=== PATIENT | male | born 1950 | race Caucasian/White ===

== ENCOUNTER → 2017-05-19 | Outpatient (CLI) | payer MEDICARE, MEDICAID ==
[2017-05-19] VITALS (18 sets, daily range): BP systolic 150–194; BP diastolic 8–96
[~2017-05-19] MED LIST: ALDACTONE 25MG25 MG PO; AMARYL 4MG. TAB4 MG PO; ASPIRIN EC81 M1 PO; ASPIRIN OR; BACTROBAN2% TP; BLEPH-10 OPT5 ML/BOT OP; CARAFATE1 GM PO; COREG6.25 MG PO; CRESTOR5 MG PO; FERROUS SULFAT325 M2 PO; FERROUS SULFATE 325 MG PO; GINSENG; JANUVIA100 MG PO; LAC-HYDRIN121 TP; LASIX80 MG PO; LISINOPRIL 10MG10 MG PO; LISINOPRIL10 MG PO; LOPROX0.771 TP; LOVAZA1 GM PO; METFORMIN 500M500 M1 PO; METFORMIN HCL1000 MG PO; MICRO-K 10 MEQ10 MEQ PO; OMEPRAZOLE20 MG PO; PLAVIX 75MG TAB75 MG PO; PLAVIX75 MG PO; TRADJENTA5 MG PO; TRAMADOL 50MG T50 MG PO; TRENTAL 400MG400 MG PO; TRICOR 145 MG145 MG PO; TYLENOL PM1 CAP PO; XYZAL5 MG PO
[2017-05-19 11:48] LABS: LYMPH # 1.2 K/mm3 (0.7-4.5); LYMPH % 20.2 % (10-50)
[2017-05-19 11:50] LABS: HEMOGLOBIN 7.7 g/dL (14.1-18.0)
[2017-05-19 12:34] LABS: ABO BLOOD TYPE O; RH BLOOD TYPE POSITIVE
[2017-05-19 12:50] LABS: ANTIHUMAN GLOB CROSSMATCH COMPAT
[2017-05-19 19:17] LABS: HEMOGLOBIN 9.1 g/dL (14.1-18.0)
== END ==
LOC: LAB 11:33 → COP 12:53
PROVIDERS: Family Medicine
DX: D50.0 Iron deficiency anemia secondary to blood loss (chronic) (principal)
CPT/HCPCS: P9016

== ENCOUNTER 2017-06-12 08:37 | Emergency (ER) | payer MEDICARE, MEDICAID ==
[~2017-06-12] VITALS: Ht 175.3 cm; Wt 136.1 kg
--- NOTE | 2017-06-12 09:02 | Emergency Room Report ---
History of Present Illness Time Seen by MD Kay Presenting Problem in Triage Pt arrived:Wheelchair Presenting Problem:BLEEDING NOTED TO R GREAT TOE, PT STATES UNKNOWN INJURY, THINKS POSSIBLY HIT IT WHILE GETTING ON TRANSPORTATION BUS THIS MORNING. BLEEDING IS NOTED UNDER PT TOENAIL ON R GREAT TOE. PT REPORTS DOES NOT NORMALLY HAVE SENSATION IN FEET Onset of symptoms date/time:06/12/17/ or onset unknown for:MEDICAL HX UNKNOWN Treatment Prior to Arrival: [employer] Provided by: Sepsis Risk Assessment: Temp: 98.1 B/P: 154/70 MAP: 98 Pulse: 89 Resp: 20 Recent fever? N Clinical Suspician of Infection? N Mental Status: 1 - Regular (Normal Baseline) Sepsis Risk:Low Sepsis Risk Have you (or family members/close friends) recently traveled outside the [place]? N If Yes, where/when: Have you had exposure to infectious disease within the past month? N TB? Other? Specify: Stubbed LEFT great toe on door today on way to bus; noted some bleeding to foot when getting on bus; is on Plavix; hx diabetic peripheral neuropathy as well as onychomycosis. Presents with slow oozing from medial aspect of left great toenail, with slightly unroofed nail. ALLERGIES Coded Allergies: Penicillins (Intermediate, 05/19/17) erythromycin base (Intermediate, 05/19/17) Home Medications Active Scripts Sucralfate (Carafate) 1 GM PO ACHS #120 TAB Ref 3 Prov: 04/16/13 Metformin HCl (Metformin) 500 MG PO BIDD #60 TAB Prov: 04/07/14 MUPIROCIN 2% (Bactroban Oint) 2 GM TP BID #60 EACH Ref 1 Prov: 04/07/14 Reported Medications Rosuvastatin Calcium (Crestor) 5 MG PO DAILY Omeprazole (Omeprazole 20MG) 20 MG PO DAILY Ferrous Sulfate (Ferrous Sulfate 325MG) 325 MG PO BID CLOPIDOGREL BISULFATE (PLAVIX) 75 MG PO DAILY LEVOCETIRIZINE DIHYDROCHLORIDE (Xyzal) 5 MG PO DAILY Tramadol Hcl (Tramadol 50MG) 50 MG PO NEEDED Linagliptin (Tradjenta) 5 MG PO DAILY Fenofibrate 145 MG PO DAILY Ammonium Lactate (Lac-Hydrin) 1 EMMANUEL TP BIDP Carvedilol (Coreg) 6.25 MG PO BID Glimepiride (Amaryl 4MG) 4 MG PO DAILY Spironolactone (Aldactone) 25 MG PO BID #60 TAB POTASSIUM CHL (Potassium Chloride) 10 MEQ PO DAILY OMEGA-3 ACID ETHYL ESTERS (Lovaza) 1 GM PO QID Furosemide (Lasix) 80 MG PO DAILY Lisinopril 10 MG PO BID History Medical History General CAD? No Angina: No OR: No Hypertension? Yes Hyperlipidemia? Yes CHF? No DVT? No PE? No COPD? No Asthma? No Anemia? No GERD? No Gastric ulcers? No GI Bleed? No Hernia? No Thyroid Problems? No Hypothyroidism? No CVA? Yes Seizures? No Diabetes? Yes Insulin Dependent: No Insulin Pump: No Home FSBS? Yes Renal Insuffiency? No End Stage Renal Disease? No UTI? No Stones? No GB Disease: No Nephritic Syndrome? No Asplenia? No Hepatitis? No Sickle Cell Disease? No Cataracts? No Glaucoma? No MRSA? No TB? No Cancer? No Immunization Hx DT/Tetanus > 10 Years Ago Flu Refused Pneumonia Refuses Surgical Hx Previous Surgery?Y CIRCUMCISION ORAL SURGERY Family History Family Hx Diabetes Yes CAD Yes Hypertension Yes Hyperlipidemia Yes Cancer No TB No Social History Smoking Hx Smoker: Former Smoker Tobacco: No Packs/day < 1 Pack Alcohol Alcohol: Yes Review of Systems All Other Systems Reviewed and Negative Skin see HPI Psychiatric/Neurological pre-existing deficit Physical Exam Vital Signs Vital Signs Date Time Temp Pulse Resp B/P Pulse O2 O2 Flow FiO2 Ox Delivery Rate 06/12 0844 98.1 89 20 154/70 93 General Appearance normal appearance, WD/WN, no apparent distress Eye Exam - bilateral eye normal exam, bilateral eye PERRL, bilateral eye EOMI Respiratory Status Yes: trachea midline. No: respiratory distress. Cardiovascular normal exam, no peripheral edema, normal peripheral pulses Extremities diabetic peripheral neuropathy, feet dark red with global onychomycosis; oozing is very slow but steady from medial great toenail with mildly unroofed mycotic/thickened nail noted; has brisk CR; evidence of chronic PVD and global nonpitting edema, inability to feel feet. FROM all toes. Strength 5 Upper Ext (L), 5 Upper Ext (R), 5 Lower Ext (L), 5 Lower Ext (R) Neurologic alert (peripheral neuropathy baseline) Glascow Coma Scale Glascow Coma Scale Response Value EYE response: 4 Spontaneously 4 MOTOR response: 6 OBEYS 6 VERBAL response: 5 Oriented & Converses 5 Total 15 Skin intact (see above) Medical Decision Making LABS/Meds/Orders Pt receiving controlled substance in ED? No Results/Orders Current Medication Orders Sig/Yinka Start time Last Medication Dose Route Stop Time Status Admin Diphtheria/Pertussis/ 0 .STK-MED ONE 06/12 905 DC Tetanus Vacc IM Silver Nitrate/ 0 .STK-MED ONE 06/12 905 DC Potassium Nitrate EX Diphtheria/Pertussis/ 0.5 ML ONCE ONE 06/12 900 DC 06/12 Tetanus Vacc IM 06/12 901 0910 Silver Nitrate/ 1 EACH ONCE ONE 06/12 900 DC 06/12 Potassium Nitrate EX 06/12 901 09 Silver Nitrate/ 0 .STK-MED ONE 06/12 0847 DC Potassium Nitrate EX Orders Procedure Date/time Status TOE-LT-1ST DIGIT(GREAT)-3VIEWS 06/12 0858 Active XRAY/CT/US XRAY/CT/US XRAY foot XR interpretation by reviewed by me, discussed w/radiologist Xray Results no fracture seen (DJD neg acute per Dr. Dobbins) Progress ED Progress Notes Date 06/12/17 Time 1018 Comment No further bleeding on recheck. Procedures Laceration/Wound Repair Laceration/Wound Repair Risks/benefits discussed with pt/guardian? Yes Tetanus status not up to date (updated today) Wound Location toe(s) Wound Length (cm) 0.25 Wound's Depth, Shape superficial Wound Explored clean Wound Prep Hibiclens Wound Debrided none Wound Repaired With silver nitrate cautery Sterile Dressing Applied Yes Splint Applied No Departure Departure Time of Disposition 1019 Disposition DC Home or Self Care(routine) Clinical Impression Primary Impression: Abrasion, left great toe, initial encounter Condition STABLE Referrals JYOTHI MOORE DPM Patient Instructions DI for Abrasion Additional Instructions See Dr. Moore, next available appointment; soak foot ten minutes every few hours while awake in warm water; keep quite dry, apply antibiotic ointment and dressing. Watch for infection. See Dr. Gaming in one to two days for recheck. Discharge Counseling Counseled pt/family regarding diagnosis, test results, medications/RX, home care, follow up needs ED Critical Care Critical Care No at 1025
--- OUTSIDE RECORDS SUMMARY | 2017-06-12 09:10 | External Medical Summary Rpt | CCD ---
Author Author , TAMRA BOSCHBRIGID Address Unknown Phone [email or web address] Care Team Providers Care Medicaid Biller Name Role Phone Jacy DILLON, Unavailable Unavailable Jacy Gaming MD, Unavailable Unavailable Eusebio Gaming MD Purpose Continuity of Care Document - 01-26-2013 through 2016 Problems Code Diagnosis DOS Provider Status 250.00 280.9 Iron [place] deficiency [facility] anemia [facility] 285.9 Anemia [facility] 401.1 Benign [facility] n [id number] Diabetes [place] mellitus [facility] type 2 Hospital 443.9 Peripheral [place] vascular [facility] disease [facility] [id number] Active [facility] 780.57 Sleep apnea [facility] [id number] Chronic [facility] D50.0 IRON DEFICIENCY ANEMIA SECONDARY TO BLOOD LOSS (CHRONIC) D64.9 ANEMIA, UNSPECIFIED V76.44 Allergies, Adverse Reactions, Alerts Type Allergy to substance Drug Allergy Adverse Reaction to Substance Substance Reaction Severity MYCINS Unknown Severe Macrolide Unknown Severe (Erythromycin-Related ) PCN (penicillin) S-DIFF. BREATHING Unknown Propoxyphene Unknown Unknown Acetaminophen Unknown Unknown Clinical Alert Notifications Alert Diabetes: no A1C in the last 6 months Diabetes: no eye exam in the last 365 days Diabetes: no influenza vaccine in the last 365 days Diabetes: no lipid panel in the last 365 days Diabetes: no urine protein screening in the last 365 days Medications Na ND Rx Da Fi Fi Am Da Di Ph RX Ph St me C No te ll ll ou ys ag ar # ys at rm s nt no ma ic us Or Da si cy ia de te s n re d FE 00 09 1 No RR 60 -2 OU 30 0- Lo S 17 20 ng FERNANDES 92 13 er LF 9 AT Ac E ti 32 ve 5 MG TA BL ET GL 51 09 2 No IM 07 -1 EP 90 9- Lo IR 42 20 ng ID 52 13 er E 0 2 Ac MG ti ve TA BL ET Li 00 09 2 No si 17 -1 no 23 9- Lo pr 75 20 ng il 91 13 er 0 10 Ac MG ti ve Ta bl et Po 00 09 2 No ta 24 -1 ss 50 9- Lo iu 04 20 ng m 10 13 er Ch 1 lo Ac ri ti de ve 10 ME Q TA BL E SP 51 09 2 No IR 07 -1 ON 90 9- Lo OL 10 20 ng AC 32 13 er TO 0 NE Ac ti 25 ve MG TA BL ET PA 51 09 2 No NT 07 -1 OP 90 9- Lo RA 05 20 ng ZO 12 13 er LE 0 Ac SO ti D ve DR 40 MG TA B [place] 51 09 2 No cr 07 -1 al 90 9- Lo fa 87 20 ng te 12 13 er 0 1G Ac M ti Ta ve bl et DE 00 09 0 No XT 40 -1 RO 97 8- Lo SE 94 20 ng 10 13 er 5% 9 -0 Ac .9 ti % ve NA CL IV SO LN FU 51 09 3 No RO 07 -1 SE 90 8- Lo NV 52 20 ng DE 72 13 er 0 80 Ac ti MG ve TA BL ET TR 65 09 3 No AM 16 -1 AD 20 8- Lo OL 62 20 ng 71 13 er HC 0 L Ac 50 ti ve MG TA BL ET CA 51 09 3 No RV 07 -1 ED 90 8- Lo IL 93 20 ng OL 02 13 er 0 6. Ac 25 ti ve MG TA BL ET SP 51 09 1 No IR 07 -1 ON 90 8- Lo OL 10 20 ng AC 32 13 er TO 0 NE Ac ti 25 ve MG TA BL ET Vital Signs 04-16-2013 15:00 Name Value Interpretat Reference Comment ion Range Body 97.9 [degF] Temperature BP 78 mm[Hg] Diastolic BP Systolic 157 mm[Hg] Heart 78 /min Rate/Pulse Respiratory 20 /min Rate 04-16-2013 08:00 Name Value Interpretat Reference Comment ion Range O2% 94 % 04-14-2013 16:00 Name Value Interpretat Reference Comment ion Range O2% 98 % 04-13-2013 16:54 Name Value Interpretat Reference Comment ion Range Body 98.6 [degF] Temperature BP 58 mm[Hg] Diastolic BP Systolic 131 mm[Hg] Heart 98 /min Rate/Pulse Height 175.26 cm Respiratory 20 /min Rate Weight 308 [lb_av] Measured Weight 139.765 kg Measured 01-26-2013 03:20 Name Value Interpretat Reference Comment ion Range BP 66 mm[Hg] Diastolic BP Systolic 144 mm[Hg] Heart 89 /min Rate/Pulse O2% 99 % Respiratory 20 /min Rate 01-26-2013 02:55 Name Value Interpretat Reference Comment ion Range BP 74 mm[Hg] Diastolic BP Systolic 152 mm[Hg] Heart 87 /min Rate/Pulse O2% 97 % Respiratory 20 /min Rate Results Labs Lab Lab Date Result Refere Interp Status Commen Order Detail nces retati t Range on Whole blood hemoglobin and hematocrit pa (05-19-2017 16:35) Blood = 9.1 14.1-18 complet hemoglo 017 g/dL .0 ed bin 16:35 measure ment (mass/v olum Blood = 28.6 42.0-52 complet hematoc 017 % .0 ed rit 16:35 (volume fractio n) Leukocyte reduction of packed red blood (05-19-2017 15:50) Leukocy BLOOD complet te 017 UNIT ed reducti 15:50 RELEASE on of BLOOD packed UNIT red RELEASE blood L Comment: BLOOD UNIT # : [id number] RELEASED 05/19/17 Comment: Maged Melchor Comment: Comment: O POSITIVE Blood product special preparation [Type] (05-19-2017 15:50) Blood BLOOD complet product 017 UNIT ed 15:50 RELEASE special prepara tion [Type] Leukocyte reduction of packed red blood (05-19-2017 13:55) Leukocy BLOOD complet te 017 UNIT ed reducti 13:55 RELEASE on of BLOOD packed UNIT red RELEASE blood L Comment: BLOOD UNIT # : [id number] RELEASED 05/19/17 Comment: Elaina Joseph Comment: Comment: O POSITIVE Blood product special preparation [Type] (05-19-2017 13:55) Blood BLOOD complet product 017 UNIT ed 13:55 RELEASE special prepara tion [Type] Crossmatch (05-19-2017 11:36) Immedia COMPAT complet te spin 017 COMPAT ed 11:36 L crossma tch Interpr COMPAT complet etation 017 COMPAT ed of 11:36 L major crossma tch resul Blood type and crossmatch (05-19-2017 11:36) Blood O O L complet ABO 017 ed group 11:36 typing Rh POSITIV complet blood 017 E ed group 11:36 POSITIV typing E L Materna NEGATIV NEGATIV complet l 017 E E ed antibod 11:36 NEGATIV y E L screen Blood type & Crossmatch panel in Blood (05-19-2017 11:36) Blood NEGATIV NEGATIV complet group 017 E E ed antibod 11:36 y screen [Presen ce] in Serum or Plasma Rh POSITIV complet [Type] 017 E ed in 11:36 Blood ABO O complet group 017 ed [Type] 11:36 in Blood Blood type & Crossmatch panel in Blood (05-19-2017 11:36) Major COMPAT complet crossma 017 ed tch 11:36 [interp retatio n] Major COMPAT complet crossma 017 ed tch 11:36 [interp retatio n] by Immedia te spin CBC w auto diff (05-19-2017 11:33) Automat = 0.0 0-0.2 complet ed 017 K/MM3 ed blood 11:33 basophi l count (count/ vo Blood = 5.8 4.8-10. complet leukocy 017 K/MM3 8 ed bertha 11:33 count (number /volume ) Automat = 16.5 11.5-17 complet ed 017 % .5 ed erythro 11:33 cyte distrib ution width Red = 2.66 4.6-6.2 complet blood 017 M/mm3 ed cell 11:33 count Blood = 230 142-424 complet platele 017 K/mm3 ed t count 11:33 Automat = 9.0 7.4-10. complet ed 017 fl 4 ed blood 11:33 platele t mean volume [place] % = 5.7 % 1.7-9.3 complet 017 ed 11:33 Absolut = 0.3 0.1-1.0 complet e 017 K/mm3 ed monocyt 11:33 e count Automat = 93.9 82.2-97 complet ed 017 fl .8 ed erythro 11:33 cyte mean corpusc ular v Automat = 30.8 31.8-35 complet ed 017 g/dl .4 ed erythro 11:33 cyte mean corpusc ular h Mean = 29.0 27-31.2 complet corpusc 017 pg ed ular 11:33 hemoglo bin (MCH) determ Lymphoc = 20.2 10-50 complet yte 017 % ed count, 11:33 blood, automat ed Absolut = 1.2 0.7-4.5 complet e 017 K/mm3 ed lymphoc 11:33 yte count Blood = 7.7 14.1-18 complet hemoglo 017 g/dL .0 ed bin 11:33 measure ment (mass/v olum Comment: CRITICAL RESULTS Comment: RESULTS CALLED TO: MONSECHARO Thompson 05/19/17 1150 Maged Melchor Comment: Jackeline Blood = 25.0 42.0-52 complet hematoc 017 % .0 ed rit 11:33 (volume fractio n) Granulo = 68.2 37.0-80 complet cyte 017 % .0 ed percent 11:33 age Blood = 4.0 1.3-8.0 complet granulo 017 K/mm3 ed cytes 11:33 automat ed count (numb Automat = 5.1 % 0.1-12. complet ed 017 0 ed blood 11:33 eosinop hils/10 0 leukocy t Automat = 0.3 0.0-0.4 complet ed 017 K/mm3 ed blood 11:33 eosinop hil count Baso % = 0.8 % 0.1-2.0 complet 017 ed 11:33 Blood type & Crossmatch panel in Blood (03-19-2017 16:26) Blood NEGATIV NEGATIV complet group 017 E E ed antibod 16:26 y screen [Presen ce] in Serum or Plasma Rh POSITIV complet [Type] 017 E ed in 16:26 Blood ABO O complet group 017 ed [Type] 16:26 in Blood Blood type & Crossmatch panel in Blood (03-19-2017 16:26) Major COMPAT complet crossma 017 ed tch 16:26 [interp retatio n] Major COMPAT complet crossma 017 ed tch 16:26 [interp retatio n] by Immedia te spin CBC with AUTO DIFF (04-16-2013 06:45) WBC # 09-21-2 6.5 4.8-10. complet Bld 013 K/MM3 8 ed Auto 06:45 RBC # 09-21-2 4.00 4.6-6.2 complet Bld 013 M/mm3 ed Auto 06:45 Hgb -21-2 9.2 14.1-18 complet Bld-mCn 013 g/dL .0 ed c 06:45 Hct Fr --2 30.6 % 42.0-52 complet Bld 013 .0 ed 06:45 MCV RBC -21-2 76.6 fl 82.2-97 complet 013 .8 ed 06:45 MCH RBC -21-2 23.0 pg 27-31.2 complet Qn 013 ed Auto 06:45 MEAN -21-2 30.0 31.8-35 complet CORPUSC 013 g/dl .4 ed ULAR 06:45 HGB CONC RDW RBC -21-2 21.6 % 11.5-17 complet Auto 013 .5 ed 06:45 Platele 09-21-2 294 142-424 complet t Bld 013 K/mm3 ed Ql 06:45 Manual MEAN 09-21-2 7.1 fl 7.4-10. complet PLATELE 013 4 ed T 06:45 VOLUME Granulo -21-2 69.0 % 37.0-80 complet cytes 013 .0 ed Fr Bld 06:45 Auto LYMPH % 09-21-2 21.8 % 10-50 complet 013 ed 06:45 Monocyt 09-21-2 5.2 % 1.7-9.3 complet es Fr 013 ed Bld 06:45 Auto Eosinop 09-21-2 3.5 % 0.1-12. complet hil Fr 013 0 ed Bld 06:45 Auto Basophi 09-21-2 0.5 % 0.1-2.0 complet ls Fr 013 ed Bld 06:45 Auto Granulo 09-21-2 4.5 1.3-8.0 complet cytes # 013 K/mm3 ed Bld 06:45 Auto Lymphoc 09-21-2 1.4 0.7-4.5 complet ytes Fr 013 K/mm3 ed Bld 06:45 Auto Monocyt 09-21-2 0.3 0.1-1.0 complet es # 013 K/mm3 ed Bld 06:45 Auto Eosinop 09-21-2 0.2 0.0-0.4 complet hil # 013 K/mm3 ed Bld 06:45 Auto Basophi 09-21-2 0.0 0-0.2 complet ls # 013 K/MM3 ed Bld 06:45 Auto BASIC METABOLIC PANEL (04-15-2013 08:30) Glucose 201 74-106 complet 013 mg/dL ed Bld-mCn 08:30 c BUN 26 7-18 complet Bld-mCn 013 mg/dL ed c 08:30 Creat 04-15-2 1.9 0.8-1.3 complet SerPl-m 013 mg/dL ed Cnc 08:30 ESTIMAT 04-15- 78 50-200 complet ED 013 ML/MIN ed CREATIN 08:30 INE CLEARAN CE GFR 36 Greater complet (ESTIMA 013 ML/MIN than ed SOHAIL) 08:30 60 Sodium 04-15- 140 136-145 complet SerPl-s 013 mmoL/L ed Cnc 08:30 Potassi 04-15- 4.5 3.5-5.1 complet um 013 mmoL/L ed SerPl-s 08:30 Cnc Chlorid 04-15- 102 98-107 complet e 013 mmoL/L ed SerPl-s 08:30 Cnc CO2 04-15- 30 21.0-32 complet SerPl-s 013 mmoL/L .0 ed Cnc 08:30 Calcium 09-20-2 8.3 8.5-10. complet 013 mg/dL 1 ed SerPl-m 08:30 Cnc CBC with AUTO DIFF (04-15-2013 08:30) WBC # 09-20-2 7.0 4.8-10. complet Bld 013 K/MM3 8 ed Auto 08:30 RBC # 09-20-2 3.95 4.6-6.2 complet Bld 013 M/mm3 ed Auto 08:30 Hgb 09-20-2 8.5 14.1-18 complet Bld-mCn 013 g/dL .0 ed c 08:30 Hct Fr -20-2 29.7 % 42.0-52 complet Bld 013 .0 ed 08:30 MCV RBC 09-20-2 75.1 fl 82.2-97 complet 013 .8 ed 08:30 MCH RBC -20-2 21.5 pg 27-31.2 complet Qn 013 ed Auto 08:30 MEAN 09-20-2 28.6 31.8-35 complet CORPUSC 013 g/dl .4 ed ULAR 08:30 HGB CONC RDW RBC -20-2 22.3 % 11.5-17 complet Auto 013 .5 ed 08:30 Platele 09-20-2 351 142-424 complet t Bld 013 K/mm3 ed Ql 08:30 Manual MEAN -20-2 8.0 fl 7.4-10. complet PLATELE 013 4 ed T 08:30 VOLUME Granulo -20-2 76.0 % 37.0-80 complet cytes 013 .0 ed Fr Bld 08:30 Auto LYMPH % 09-20-2 16.3 % 10-50 complet 013 ed 08:30 Monocyt 09-20-2 4.2 % 1.7-9.3 complet es Fr 013 ed Bld 08:30 Auto Eosinop 09-20-2 2.9 % 0.1-12. complet hil Fr 013 0 ed Bld 08:30 Auto Basophi 09-20-2 0.6 % 0.1-2.0 complet ls Fr 013 ed Bld 08:30 Auto Granulo 09-20-2 5.3 1.3-8.0 complet cytes # 013 K/mm3 ed Bld 08:30 Auto Lymphoc 09-20-2 1.1 0.7-4.5 complet ytes Fr 013 K/mm3 ed Bld 08:30 Auto Monocyt 09-20-2 0.3 0.1-1.0 complet es # 013 K/mm3 ed Bld 08:30 Auto Eosinop 09-20-2 0.2 0.0-0.4 complet hil # 013 K/mm3 ed Bld 08:30 Auto Basophi 09-20-2 0.0 0-0.2 complet ls # 013 K/MM3 ed Bld 08:30 Auto CBC with AUTO DIFF (04-14-2013 05:30) WBC # 09-19-2 6.6 4.8-10. complet Bld 013 K/MM3 8 ed Auto 05:30 RBC # 09-19-2 3.40 4.6-6.2 complet Bld 013 M/mm3 ed Auto 05:30 Hgb 09-19-2 7.0 14.1-18 Low complet Bld-mCn 013 g/dL .0 alert ed c 05:30 Hct Fr 09-19-2 24.7 % 42.0-52 complet Bld 013 .0 ed 05:30 MCV RBC 09-19-2 72.7 fl 82.2-97 complet 013 .8 ed 05:30 MCH RBC 09-19-2 20.6 pg 27-31.2 complet Qn 013 ed Auto 05:30 MEAN 09-19-2 28.3 31.8-35 complet CORPUSC 013 g/dl .4 ed ULAR 05:30 HGB CONC RDW RBC 09-19-2 21.5 % 11.5-17 complet Auto 013 .5 ed 05:30 Platele 09-19-2 331 142-424 complet t Bld 013 K/mm3 ed Ql 05:30 Manual MEAN 09-19-2 6.9 fl 7.4-10. complet PLATELE 013 4 ed T 05:30 VOLUME Granulo 09-19-2 71.3 % 37.0-80 complet cytes 013 .0 ed Fr Bld 05:30 Auto LYMPH % 09-19-2 18.4 % 10-50 complet 013 ed 05:30 Monocyt 09-19-2 7.0 % 1.7-9.3 complet es Fr 013 ed Bld 05:30 Auto Eosinop 09-19-2 3.0 % 0.1-12. complet hil Fr 013 0 ed Bld 05:30 Auto Basophi 09-19-2 0.3 % 0.1-2.0 complet ls Fr 013 ed Bld 05:30 Auto Granulo -19-2 4.7 1.3-8.0 complet cytes # 013 K/mm3 ed Bld 05:30 Auto Lymphoc -19-2 1.2 0.7-4.5 complet ytes Fr 013 K/mm3 ed Bld 05:30 Auto Monocyt -19-2 0.5 0.1-1.0 complet es # 013 K/mm3 ed Bld 05:30 Auto Eosinop -19-2 0.2 0.0-0.4 complet hil # 013 K/mm3 ed Bld 05:30 Auto Basophi -19-2 0.0 0-0.2 complet ls # 013 K/MM3 ed Bld 05:30 Auto H. PYLORI IGG ANTIBODY (04-14-2013 05:30) H. 04-14-2 POSITIV complet PYLORI 013 E ed IGG 05:30 ANTIBOD Y Vit B12 Ser-mCnc (04-13-2013 17:45) Vit B12 319 200-110 complet 013 pg/mL 0 ed Ser-mCn 17:45 c Folate SerPl-mCnc (04-13-2013 17:45) Folate 04-13- 9.1 () complet SerPl-m 013 ng/mL ed Cnc 17:45 Ferritin SerPl-mCnc (04-13-2013 17:45) Ferriti 04-13- 6 ng/mL 8-388 complet n 013 ed SerPl-m 17:45 Cnc COMPREHENSIVE METABOLIC PANEL (04-13-2013 17:45) Glucose 137 74-106 complet 013 mg/dL ed Bld-mCn 17:45 c BUN 04-13- 34 7-18 complet Bld-mCn 013 mg/dL ed c 17:45 Creat 04-13- 2.2 0.8-1.3 complet SerPl-m 013 mg/dL ed Cnc 17:45 ESTIMAT 04-13- 67 50-200 complet ED 013 ML/MIN ed CREATIN 17:45 INE CLEARAN CE GFR 30 Greater complet (ESTIMA 013 ML/MIN than ed SOHAIL) 17:45 60 Sodium 04-13- 140 136-145 complet SerPl-s 013 mmoL/L ed Cnc 17:45 Potassi 04-13- 4.7 3.5-5.1 complet um 013 mmoL/L ed SerPl-s 17:45 Cnc Chlorid 102 98-107 complet e 013 mmoL/L ed SerPl-s 17:45 Cnc CO2 30 21.0-32 complet SerPl-s 013 mmoL/L .0 ed Cnc 17:45 Calcium 04-13- 8.2 8.5-10. complet 013 mg/dL 1 ed SerPl-m 17:45 Cnc Prot 6.5 6.4-8.2 complet SerPl-m 013 gm/dL ed Cnc 17:45 Albumin 3.2 3.4-5.0 complet 013 gm/dL ed SerPl-m 17:45 Cnc Globuli 3.3 1.3-3.2 complet n 013 gm/dL ed Ser-mCn 17:45 c Albumin 1.0 UNK 1.1-1.8 complet /Glob 013 ed SerPl-m 17:45 Rto Bilirub 0.3 0.2-1.0 complet 013 mg/dL ed SerPl-m 17:45 Cnc AST 13 U/L 15-37 complet SerPl-c 013 ed Cnc 17:45 ALT 24 U/L 30-65 complet SerPl-c 013 ed Cnc 17:45 ALP 73 U/L 50-136 complet SerPl-c 013 ed Cnc 17:45 PROTIME/INR (04-13-2013 17:45) PROTHRO 12.3 9.9-11. complet MBIN 013 SECONDS 6 ed TIME 17:45 INR Bld 1.15 0.9-1.1 complet 013 UNK ed 17:45 ACT PARTIAL THROMBO TIME (04-13-2013 17:45) ACT 22.9 25.3-32 complet PARTIAL 013 SECONDS .0 ed 17:45 THROMBO TIME CBC with AUTO DIFF (04-13-2013 17:45) WBC # 04-13-2 6.1 4.8-10. complet Bld 013 K/MM3 8 ed Auto 17:45 RBC # 09-18-2 2.75 4.6-6.2 complet Bld 013 M/mm3 ed Auto 17:45 Hgb 09-18-2 4.7 14.1-18 Low complet Bld-mCn 013 g/dL .0 alert ed c 17:45 Hct Fr 09-18-2 18.8 % 42.0-52 Low complet Bld 013 .0 alert ed 17:45 MCV RBC 09-18-2 68.2 fl 82.2-97 complet 013 .8 ed 17:45 MCH RBC 09-18-2 17.2 pg 27-31.2 complet Qn 013 ed Auto 17:45 MEAN 09-18-2 25.3 31.8-35 complet CORPUSC 013 g/dl .4 ed ULAR 17:45 HGB CONC RDW RBC 09-18-2 19.0 % 11.5-17 complet Auto 013 .5 ed 17:45 Platele 09-18-2 295 142-424 complet t Bld 013 K/mm3 ed Ql 17:45 Manual MEAN 09-18-2 9.5 fl 7.4-10. complet PLATELE 013 4 ed T 17:45 VOLUME Granulo 09-18-2 70.5 % 37.0-80 complet cytes 013 .0 ed Fr Bld 17:45 Auto LYMPH % 09-18-2 21.0 % 10-50 complet 013 ed 17:45 Monocyt 09-18-2 4.4 % 1.7-9.3 complet es Fr 013 ed Bld 17:45 Auto Eosinop 09-18-2 3.1 % 0.1-12. complet hil Fr 013 0 ed Bld 17:45 Auto Basophi 09-18-2 1.0 % 0.1-2.0 complet ls Fr 013 ed Bld 17:45 Auto Granulo 09-18-2 4.3 1.3-8.0 complet cytes # 013 K/mm3 ed Bld 17:45 Auto Lymphoc 09-18-2 1.3 0.7-4.5 complet ytes Fr 013 K/mm3 ed Bld 17:45 Auto Monocyt 09-18-2 0.3 0.1-1.0 complet es # 013 K/mm3 ed Bld 17:45 Auto Eosinop 09-18-2 0.2 0.0-0.4 complet hil # 013 K/mm3 ed Bld 17:45 Auto Basophi 0.1 0-0.2 complet ls # 013 K/MM3 ed Bld 17:45 Auto Retics/100 RBC Fr Auto (04-13-2013 17:45) Retics/ 1.6 % 0.9-3.2 complet 100 RBC 013 ed Fr 17:45 Auto Procedures Procedure DOS Code Location Performer Comment PACKED 99.04 Eusebio PRATHER MD ON Encounters Encounter Start End Date Code Location Performer Type Date Inpatient MARLIN Gaming MD (IN) 3 16:29 3 15:00 [facility] ABEL Major MD (ER) 3 02:44 3 03:21 [facility]
--- OUTSIDE RECORDS SUMMARY | 2017-06-12 09:10 | External Medical Summary Rpt | CCD ---
Author Author , TAMRA BOSCHBRIGID Address Unknown Phone [email or web address] [email or web address] Care Medical Laboratory Technician Name Role Phone Jacy DILLON, Unavailable Unavailable Jacy Gaming MD, Unavailable Unavailable Eusebio Gaming MD Purpose Continuity of Care Document - 01-26-2013 through 2016 Problems Code Diagnosis DOS Provider Status 250.00 280.9 Iron [place] deficiency [facility] anemia [facility] 285.9 Anemia [facility] 401.1 Benign [facility] n [id number] Diabetes [place] mellitus [facility] type 2 Hospital 443.9 Peripheral [place] vascular [facility] disease [facility] [id number] Active [facility] 780.57 Sleep apnea [facility] [id number] Chronic [facility] D50.0 IRON DEFICIENCY ANEMIA SECONDARY TO BLOOD [...] RO 07 -1 SE 90 8- Lo [place] 52 20 ng DE 72 13 er [...] Comment: BLOOD UNIT # : [id number] RELEASED 05/19/17 Comment: Maged Melchor Comment: Comment: O POSITIVE Blood product special preparation [Type] (05-19-2017 15:50) Blood BLOOD complet product 017 UNIT ed 15:50 RELEASE special prepara tion [Type] Leukocyte reduction of packed red blood (05-19-2017 13:55) Leukocy BLOOD complet te 017 UNIT ed reducti 13:55 RELEASE on of BLOOD packed UNIT red RELEASE blood L Comment: BLOOD UNIT # : [id number] RELEASED 05/19/17 Comment: Elaina Joseph Comment: Comment: [...] blood 11:33 platele t mean volume angelica [place] % = 5.7 % 1.7-9.3 complet 017 [...] Gaming MD (IN) 3 16:29 3 15:00 [facility] Eusebio Emergency ABEL Major MD (ER) 3 02:44 3 03:21 [facility]
--- OUTSIDE RECORDS SUMMARY | 2017-06-12 09:11 | External Medical Summary Rpt | CCD ---
Demographics Preferred Language Turkish Marital Status Unknown Religion Affiliation Unknown Race Unknown Ethnic Group Unknown Author Author TAMRA Address Unknown Phone Immunization No patient found.
--- OUTSIDE RECORDS SUMMARY | 2017-06-12 09:11 | External Medical Summary Rpt | CCD ---
Demographics Preferred Language Divehi Marital Status Unknown [facility] Affiliation Unknown Race Unknown Ethnic Group Unknown Author Author TAMRA Address Unknown Phone Immunization No patient found.
--- OUTSIDE RECORDS SUMMARY | 2017-06-12 09:11 | External Medical Summary Rpt ---
Author Author TAMRA Rangel, [employer] Organization [employer] Address Unknown Phone Unavailable Results Hemoglobin & Hematocrit panel in Blood Observa Value Referen Units Interpr Notes Date tion ce etation Range Hematocri 42.0 - % Low No Oct 24 t [Volume 52.0 informati 2017 4:35 on in PM Fraction] source of Blood data Hemoglobi 14.1 - g/dL Low No Oct 24 n 18.0 informati 2017 4:35 [Mass/vol on in PM ume] in source Blood data Blood product special preparation [Type] Observa Value Referen Units Interpr Notes Date tion ce etation Range Blood BLOOD No No No BLOOD Apr 24 product UNIT informa informa informa UNIT # 2017 RELEASE tion in on in in : W0382 3:50 PM special source source source 17 data data data [id number] prepara RELEASE tion D [Type] 7GMaged padgett POSITIV E Blood product special preparation [Type] Observa Value Referen Units Interpr Notes Date tion ce etation Range Blood BLOOD No No No BLOOD Apr 24 product UNIT informa informa informa UNIT # 2017 RELEASE tion in in in : W0382 1:55 PM special source source source 17 data data data [id number] prepara RELEASE tion D [Type] 7BCadence stahl aO POSITIV E Blood type & Crossmatch panel in Blood Observa Value Referen Units Interpr Notes Date tion ce etation Range Major COMPAT No No No No Apr 24 crossma informa informa informa informa 2017 tch tion in tion in tion in tion in 11:36 [interp source source source source AM retatio data data data data n] Major COMPAT No No No No Apr 24 crossma informa informa informa informa 2017 tch tion in tion in tion in tion in 11:36 [interp source source source source AM retatio data data data data n] by Immedia te spin Blood type & Crossmatch panel in Blood Observa Value Referen Units Interpr Notes Date ti ce etation Range Blood NEGATIV NEGATIV No No No May 19 group E E informa informa informa 2016 antibod tion in tion in ti in 11:36 y source source source AM screen data data data [Presen ce] in Serum or Plasma Rh POSITIV No No No No May 19 [Type] E informa informa informa informa 2016 in tion in tion in tion in in 11:36 Blood source source source source AM data data data data ABO O No No No No May 19 group informa informa informa informa 2016 [Type] tion in ti in ti in in 11:36 in source source source source AM Blood data data data data Blood type & Crossmatch panel in Blood Observa Value Referen Units Interpr Notes Date ce etation Range Major COMPAT No No No No May 19 crossma informa informa informa informa 2017 tch tion in tion in tion in in 11:36 [interp source source source source AM retatio data data data data n] Major COMPAT No No No No May 19 crossma informa informa informa informa 2017 tch tion in tion in ti in ti in 11:36 [interp source source source source AM retatio data data data data n] by Immedia te spin CBC W Auto Differential panel in Blood Observa Value Referen Units Interpr Notes Date ti ce etation Range Basophils 0 - 0.2 K/MM3 Normal No May 192016 [#/volume on in 11:33 AM ] in source Blood by data Automated count Basophils 0.1 - 2.0 % Normal No May 192016 leukocyte on in 11:33 AM s in source Blood by data Automated count Eosinophi 0.0 - 0.4 K/mm3 Normal No May 19 ls 2016 [#/volume on in 11:33 AM ] in source Blood by data Automated count Eosinophi 0.1 - % Normal No May 19 ls/100 12.0 2016 leukocyte on in 11:33 AM s in source Blood by data Automated count Granulocy 1.3 - 8.0 K/mm3 Normal No May 19 bertha informati 2016 [#/volume on in 11:33 AM ] in source Blood by data Automated count Granulocy 37.0 - % Normal No May 19 bertha/100 80.0 informati 2016 leukocyte on in 11:33 AM s in source Blood by data Automated count Hematocri 42.0 - % Low No May 19 t [Volume 52.0 informati 2016 on in 11:33 AM Fraction] source of Blood data Hemoglobi 14.1 - g/dL Low alert May 19 n 18.0 2017 [Mass/vol CRITICAL 11:33 AM ume] in RESULTS Blood RESU LTS CALLED TO: MONSE Thompson 05/19/17 1150 Kadie Melchor e Lymphocyt 0.7 - 4.5 K/mm3 Normal No May 19 es informati 2016 [#/volume on in 11:33 AM ] in source Unspecifi data ed specimen by Automated count Lymphocyt 10 - 50 % Normal No May 19 es informati 2016 [#/volume on in 11:33 AM ] in source Unspecifi data ed specimen by Automated count Erythrocy 27 - 31.2 pg Normal No May 19 te mean inform2016 corpuscul on in 11:33 AM ar source hemoglobi data n [Entitic mass] Erythrocy 31.8 - g/dl Low No May 19 te mean 35.4 informati 2016 corpuscul on in 11:33 AM ar source hemoglobi data n concentra tion [Mass/vol ume] by Automated count Erythrocy 82.2 - fl Normal No May 19 te mean 97.8 informati 2016 corpuscul on in 11:33 AM ar volume source [Entitic data volume] by Automated count Monocytes 0.1 - 1.0 K/mm3 Normal No May 19 informati 2016 [#/volume on in 11:33 AM ] in source Blood by data Automated count Monocytes 1.7 - 9.3 % Normal No May 19 informati 2016 leukocyte on in 11:33 AM s in source Blood by data Automated count Platelet 7.4 - fl Normal No May 19 mean 10.4 informati 2016 volume on in 11:33 AM [Entitic source volume] data in Blood by Automated count Platelets 142 - 424 K/mm3 No No May 19 informati informati 2016 [#/volume on in on in 11:33 AM ] in source source Blood data data Erythrocy 4.6 - 6.2 M/mm3 Low No May 19 bertha informati 2016 [#/volume on in 11:33 AM ] in source Amniotic data fluid Erythrocy 11.5 - % Normal No May 19 te 17.5 informati 2016 distribut on in 11:33 AM ion width source [Entitic data volume] by Automated count Leukocyte 4.8 - K/MM3 Normal No May 19 s 10.8 informati 2016 [#/volume on in 11:33 AM ] in source Blood data Blood type & Crossmatch panel in Blood Observa Value Referen Units Interpr Notes Date ti ce etation Range Major COMPAT No No No No Mar 19 crossma informa informa informa informa 2017 tch tion in tion in tion in tion in 4:26 PM [interp source source source source retatio data data data data n] Major COMPAT No No No No Mar 19 crossma informa informa informa informa 2016 tch tion in tion in tion in tion in 4:26 PM [interp source source source source retatio data data data data n] by Immedia te spin Blood type & Crossmatch panel in Blood Observa Value Referen Units Interpr Notes Date ti ce etation Range Blood NEGATIV NEGATIV No No No Mar 19 group E E informa informa informa 2017 antibod tion in tion in tion in 4:26 PM y source source source screen data data data [Presen ce] in Serum or Plasma Rh POSITIV No No No No Mar 19 [Type] E informa informa informa informa 2016 in tion in tion in tion in tion in 4:26 PM Blood source source source source data data data data ABO O No No No No Mar 19 group informa informa informa informa 2016 [Type] tion in tion in tion in tion in 4:26 PM in source source source source Blood data data data data Blood type & Crossmatch panel in Blood Observa Value Referen Units Interpr Notes Date ti ce etation Range Major COMPAT No No No No Mar 19 crossma informa informa informa informa 2017 tch tion in tion in tion in tion in 4:26 PM [interp source source source source retatio data data data data n] Major COMPAT No No No No Mar 19 crossma informa informa informa informa 2017 tch tion in tion in tion in tion in 4:26 PM [interp source source source source retatio data data data data n] by Immedia te spin CBC W Auto Differential panel in Blood Observa Value Referen Units Interpr Notes Date tion ce etation Range Basophils 0 - 0.2 K/MM3 Normal No Mar 19 informati 2017 4:26 [#/volume on in PM ] in source Blood by data Automated count Basophils 0.1 - 2.0 % Normal No Mar 19 /100 informati 2017 4:26 leukocyte on in PM s in source Blood by data Automated count Eosinophi 0.0 - 0.4 K/mm3 High No Mar 19 ls informati 2016 4:26 [#/volume on in PM ] in source Blood by data Automated count Eosinophi 0.1 - % Normal No Mar 19 ls/100 12.0 informati 2017 4:26 leukocyte on in PM s in source Blood by data Automated count Granulocy 1.3 - 8.0 K/mm3 Normal No Mar 19 bertha informati 2017 4:26 [#/volume on in PM ] in source Blood by data Automated count Granulocy 37.0 - % Normal No Mar 19 bertha/100 80.0 informati 2016 4:26 leukocyte on in PM s in source Blood by data Automated count Hematocri 42.0 - % Low No Mar 19 t [Volume 52.0 informati 2016 4:26 on in PM Fraction] source of Blood data Hemoglobi 14.1 - g/dL Low No Mar 19 n 18.0 informati 2016 4:26 [Mass/vol on in PM ume] in source Blood data Lymphocyt 0.7 - 4.5 K/mm3 Normal No Mar 19 es informati 2016 4:26 [#/volume on in PM ] in source Unspecifi data ed specimen by Automated count Lymphocyt 10 - 50 % Normal No Mar 19 es informati 2016 4:26 [#/volume on in PM ] in source Unspecifi data ed specimen by Automated count Erythrocy 27 - 31.2 pg Normal No Mar 19 te mean informati 2017 4:26 corpuscul on in PM ar source hemoglobi data n [Entitic mass] Erythrocy 31.8 - g/dl Normal No Mar 19 te mean 35.4 informati 2017 4:26 corpuscul on in PM ar source hemoglobi data n concentra tion [Mass/vol ume] by Automated count Erythrocy 82.2 - fl Normal No Mar 19 te mean 97.8 informati 2017 4:26 corpuscul on in PM ar volume source [Entitic data volume] by Automated count Monocytes 0.1 - 1.0 K/mm3 Normal No Mar 19 informati 2017 4:26 [#/volume on in PM ] in source Blood by data Automated count Monocytes 1.7 - 9.3 % Normal No Mar 19 /100 informati 2017 4:26 leukocyte on in PM s in source Blood by data Automated count Platelet 7.4 - fl Low No Mar 19 mean 10.4 informati 2017 4:26 volume on in PM [Entitic source volume] data in Blood by Automated count Platelets 142 - 424 K/mm3 No No Mar 19 informati informati 2017 4:26 [#/volume on in on in PM ] in source source Blood data data Erythrocy 4.6 - 6.2 M/mm3 Low No Mar 19 bertha informati 2017 4:26 [#/volume on in PM ] in source Amniotic data fluid Erythrocy 11.5 - % Normal No Mar 19 te 17.5 informati 2017 4:26 distribut on in PM ion width source [Entitic data volume] by Automated count Leukocyte 4.8 - K/MM3 Normal No Mar 19 s 10.8 informati 2017 4:26 [#/volume on in PM ] in source Blood data
--- OUTSIDE RECORDS SUMMARY | 2017-06-12 09:11 | External Medical Summary Rpt | CCD ---
Author Author [employer] Address Unknown Phone Unavailable Purpose Continuity of Care Document - through 2016
--- OUTSIDE RECORDS SUMMARY | 2017-06-12 09:11 | External Medical Summary Rpt ---
[...] source source source 17 data data data [id number] prepara RELEASE tion D [Type] 7GMaged padgett POSITIV E Blood product special preparation [Type] Observa Value Referen Units Interpr Notes Date tion ce etation Range Blood BLOOD No No No BLOOD Apr 24 product UNIT informa informa informa UNIT # 2017 RELEASE tion in in in : W0382 1:55 PM special source source source 17 data data data [id number] prepara RELEASE tion D [Type] 7BCadence stahl [...]
[2017-06-12 10:38] VITALS: BP 154/70
== END 2017-06-12 10:38 | disposition home or self-care (01) ==
LOC: ER 08:37
PROC: 0Y3M0ZZ Control Bleeding in Right Foot, Open Approach (ICD-10-PCS; principal; 2017-06-12)
DX: S90.411A Abrasion, right great toe, initial encounter (principal); Z23 Encounter for immunization; Z88.0 Allergy status to penicillin; I10 Essential (primary) hypertension; E11.9 Type 2 diabetes mellitus without complications; Z79.84 Long term (current) use of oral hypoglycemic drugs; Z87.891 Personal history of nicotine dependence